=== PATIENT | female | born 1960 | race Caucasian/White ===

== ENCOUNTER 2016-03-19 09:10 | Emergency (ER) | payer OTHER ==
[2016-03-19 10:20] VITALS: BP 139/64
--- NOTE | 2016-03-19 10:29 | UC ---
Skin Complaint HPI - HPI Summary HPI Summary: The patient comes in today for: 1. Skin lesions: Onset: 3 days ago. Palliative/provocative: Nothing makes it better or worse. Quality: Sharp and shooting. Region: Right torso. Severity: 10/10 when present. Time: Seconds in duration. Associated symptoms: Fevers: None. Breast: No discharge. Last mammogram: Last year and OK. Axillary pain/swelling: None * - History of Current Complaint Chief Complaint: UCSkin Time Seen by Provider: 03/19/16 10:21 Stated Complaint: SKIN COMPLAINT Hx Obtained From: Patient Hx Last Menstrual Period: N/A ?: No - Allergy/Home Medications Allergies/Adverse Reactions: Allergies Allergy/AdvReac Type Severity Reaction Status Date / Time No Known Allergies Allergy Verified 03/19/16 10:21 Home Medications: Home Medications NK [No Home Medications Reported] 03/19/16 [History Confirmed 03/19/16] Review of Systems Constitutional: Negative Skin: Negative Eyes: Negative ENT: Negative Respiratory: Negative Cardiovascular: Negative Gastrointestinal: Negative Genitourinary: Negative All Other Systems Reviewed And Are Negative: Yes PMH/Surg Hx/FS Hx/Imm Hx Previously Healthy: Yes Endocrine History Of: Denies: Diabetes, Thyroid Disease, Hyperthyroidism, Hypothyroidism, Dyslipidemia Cardiovascular History Of: Denies: Cardiac Disorders, Hypertension, Pacemaker/ICD, Myocardial Infarction , Congestive Heart Failure, Atrial Fibrillation, Deep Vein Thrombosis, Bleeding Disorders Respiratory History Of: Denies: COPD, Asthma, Bronchitis, Pneumonia, Pulmonary Embolism GI/ History Of: Reports: Ulcer - peptic "long time ago." Denies: Gastroesophageal Reflux, Gastrointestinal Bleed, Gall Bladder Disease , Kidney Stones, Diverticulitis, Renal Disease, Urosepsis Neurological History Of: Reports: Migraine - No Rx regularly. Denies: TIA, CVA, Dementia, Seizures Psychological History Of: Denies: Anxiety, Depression, Bipolar Disorder, Schizophrenia, Post Traumatic Stress Disorder Cancer History Of: Denies: Lung Cancer, Colorectal Cancer, Breast Cancer, Prostate Cancer, Cervical Cancer Other History Of: Negative For: HIV, Hepatitis B, Hepatitis C, Anticoagulant Therapy - Surgical History Surgical History: Yes Surgery Procedure, Year, and Place: [facility]. Tonsilectomy. ovaries removed R/T cysts. GASTRIC SLEEVE--01/09/13 - Family History Known Family History: Negative: Cardiac Disease, Hypertension - Social History Occupation: Employed Full-time Alcohol Use: Occasionally Substance Use Type: None Smoking Status (MU): Former Smoker When Did the Patient Quit Smoking/Using Tobacco: 20 YRS AGO Physical Exam Triage Information Reviewed: Yes Appearance: Well-Appearing, No Pain Distress, Well-Nourished Vital Signs: Initial Vital Signs Temp 98.5 F 03/19/16 10:13 Pulse 74 03/19/16 10:13 Resp 16 03/19/16 10:13 BP 139/64 03/19/16 10:13 Pulse Ox 100 03/19/16 10:13 Vital Signs Reviewed: Yes Eyes: Positive: Conjunctiva Clear. Negative: Discharge ENT: Positive: Hearing grossly normal. Negative: Pharyngeal erythema, Nasal congestion, Nasal drainage, TM bulging, TM dull, TM red, Tonsillar swelling, Tonsillar exudate Dental: Negative: Gross Decay/Caries @, Dental Fracture @ Neck: Positive: Supple, Nontender, No Lymphadenopathy. Negative: Nuchal Rigidity Respiratory: Positive: Chest non-tender, Lungs clear, No respiratory distress, No accessory muscle use. Negative: Crackles, Wheezing Cardiovascular: Positive: RRR, No Murmur Abdomen Description: Positive: Nontender, No Organomegaly, Soft. Negative: Distended, Guarding, Peritoneal Signs Musculoskeletal: Positive: Strength Intact, ROM Intact, No Edema Neurological: Positive: Alert, Muscle Tone Normal Psychological: Positive: Age Appropriate Behavior, Consolable Skin: Positive: Other - Right side of torso/breast: There is no rash. There are no masses of the breast or nipple anatomy distortion or discharge. There is no axillary adenopathy. There are no subcutaneous masses. There is no induration.. Negative: rashes, breakdown Course/Dx - Course Course Of Treatment: Patient was told of her diagnostic and treatment options. AT this time, she would like to take Valtrex and a neuropathic medication. - Differential Diagnoses - Skin Complaint Differential Diagnoses: Tinea, Urticaria, Varicella Zoster - Diagnoses Provider Diagnoses: Episodic, sharp/shooting paresthesias (early Zoster vs idiopathic) Discharge - Discharge Plan Condition: Stable Disposition: HOME Patient Education Materials: Shingles (ED) Referrals: Eva Gutierrez MD [Primary Care Provider] - 1 Week (Please see your primary care provider in about a week to see how well you are doing. If you get worse, please be seen sooner.)
== END 2016-03-19 11:15 | disposition home or self-care (01) ==
LOC: UCCORT 09:10
DX: R20.2 Paresthesia of skin (principal); Z87.891 Personal history of nicotine dependence
CPT/HCPCS: 99212; G0463

== ENCOUNTER 2017-03-20 08:47 | Emergency (ER) | payer OTHER ==
[2017-03-20 09:10] VITALS: BP 126/72
--- NOTE | 2017-03-20 09:21 | UC ---
Respiratory Complaint HPI - HPI Summary HPI Summary: She has had a cough for about 2-3 weeks but this was on the mend and then yesterday she had sudden myalgias, chills, subjective fever, headache and malaise. Son has the same symptoms. - History of Current Complaint Chief Complaint: UCGeneralIllness Stated Complaint: FLU SYMPTOMS Time Seen by Provider: 03/20/17 09:12 Hx Obtained From: Patient Hx Last Menstrual Period: N/A Onset/Duration: Sudden Onset, Lasting Hours Timing: Constant Severity Initially: Moderate Severity Currently: Moderate Character: Cough: Nonproductive Aggravating Factors: Deep Breaths, Recumbent Position Alleviating Factors: Upright Position, Spontaneous Resolution Associated Signs And Symptoms: Positive: Fever, Chills, URI, Nasal Congestion. Negative: Wheezing, Hemoptysis, Dizziness, Calf Pain, Calf Swelling - Allergies/Home Medications Allergies/Adverse Reactions: Allergies Allergy/AdvReac Type Severity Reaction Status Date / Time No Known Allergies Allergy Verified 03/20/17 09:09 PMH/Surg Hx/FS Hx/Imm Hx Previously Healthy: Yes - NO prior lung disease. Smoker though in remission. Other History Of: Negative For: HIV, Hepatitis B, Hepatitis C, Anticoagulant Therapy - Surgical History Surgical History: Yes Surgery Procedure, Year, and Place: [facility]. Tonsilectomy. ovaries removed R/T cysts. GASTRIC SLEEVE--01/09/13 - Family History Known Family History: Positive: None Negative: Cardiac Disease, Hypertension - Social History Lives: With Family Alcohol Use: Weekly Substance Use Type: None Smoking Status (MU): Former Smoker When Did the Patient Quit Smoking/Using Tobacco: ~1997 - Immunization History Most Recent Influenza Vaccination: November 2016 Review of Systems Constitutional: Fever, Chills ENT: Sore Throat Respiratory: Cough Gastrointestinal: Diarrhea, Nausea All Other Systems Reviewed And Are Negative: Yes Physical Exam Triage Information Reviewed: Yes Appearance: Well-Appearing - Non toxic but does appear to have malaise., No Pain Distress, Obese Vital Signs: Initial Vital Signs Temp 99 F 03/20/17 09:05 Pulse 102 03/20/17 09:05 Resp 18 03/20/17 09:05 BP 126/72 03/20/17 09:05 Pulse Ox 100 03/20/17 09:05 Vital Signs Reviewed: Yes Eyes: Positive: Conjunctiva Clear ENT: Positive: Normal ENT inspection, Hearing grossly normal, Pharynx normal. Negative: Pharyngeal erythema, Nasal congestion, Nasal drainage, TMs normal, Tonsillar swelling, Tonsillar exudate, Trismus, Muffled voice, Hoarse voice Neck: Positive: Supple, Nontender, No Lymphadenopathy. Negative: Nuchal Rigidity Respiratory: Positive: Lungs clear, Normal breath sounds, No respiratory distress, No accessory muscle use. Negative: Respiratory distress, Decreased breath sounds, Accessory muscle use, Crackles, Rhonchi, Stridor, Wheezing Cardiovascular: Positive: No Murmur, Pulses Normal, Brisk Capillary Refill Abdomen Description: Positive: No Organomegaly, Soft. Negative: Distended, Guarding Musculoskeletal: Positive: ROM Intact, No Edema Neurological: Positive: Alert, Muscle Tone Normal. Negative: Fatigued Psychological: Positive: Age Appropriate Behavior Skin: Negative: rashes UC Diagnostic Evaluation - Laboratory O2 Sat by Pulse Oximetry: 100 Respiratory Course/Dx - Course Course Of Treatment: HR noted. She has a low grade fever. No clinical signs of pneumonia and no sob or rales. Cough is mainly dry. - Differential Dx/Diagnosis Provider Diagnoses: possible influenza. viral illness. vomiting. Discharge - Discharge Plan Condition: Good Disposition: HOME Prescriptions: Ondansetron TAB* [Zofran 4 MG Tab*] 8 mg PO Q6H PRN #12 tab PRN Reason: Nausea Patient Education Materials: Gastroenteritis (ED) Referrals: Cara Flower NP [Primary Care Provider] -
== END 2017-03-20 09:59 | disposition home or self-care (01) ==
LOC: UCCORT 08:47
DX: B34.9 Viral infection, unspecified (principal); R11.11 Vomiting without nausea; Z87.891 Personal history of nicotine dependence
CPT/HCPCS: 87502; 99212; G0463

== ENCOUNTER 2019-04-28 13:55 | Emergency (ER) | payer OTHER ==
[2019-04-28 15:07] VITALS: BP 143/77
--- NOTE | 2019-04-28 15:18 | UC ---
Skin Complaint HPI - HPI Summary HPI Summary: Patient is 59 female year old , who present today to the urgent care with a possible tick bite. Noticed tick bite on back today. Was unable to remove tick. She reports that 6 days ago [place] and might have caught take from there. And is concerned. Denies any pain or itching . She denies any other symptoms. - History of Current Complaint Chief Complaint: UCSkin Time Seen by Provider: 04/28/19 15:09 Stated Complaint: POSSIBLE TICK BITE Hx Obtained From: Patient Hx Last Menstrual Period: N/A Pain Intensity: 0 - Allergy/Home Medications Allergies/Adverse Reactions: Allergies Allergy/AdvReac Type Severity Reaction Status Date / Time No Known Allergies Allergy Verified 04/28/19 15:03 Home Medications: Home Medications NK [No Home Medications Reported] 04/28/19 [History Confirmed 04/28/19] PMH/Surg Hx/FS Hx/Imm Hx - Additional Past Medical History Additional PMH: Past Medical History : Peptic ulcer disease Past Surgical History: Cholecystectomy, tonsillectomy, right oophorectomy, gastric sleeve surgery in 2012 Family History : non contributory for any skin disorders Social History : Occasional alcohol, non smoker, no drug use. Previously Healthy: Yes Other History Of: Negative For: HIV, Hepatitis B, Hepatitis C, Anticoagulant Therapy - Surgical History Surgical History: Yes Surgery Procedure, Year, and Place: [facility]. Tonsilectomy. ovaries removed R/T cysts. GASTRIC SLEEVE--01/09/13 - Family History Known Family History: Positive: None, Other - No skin disorder, Non-Contributory Negative: Cardiac Disease, Hypertension - Social History Alcohol Use: Occasionally Substance Use Type: None Smoking Status (MU): Former Smoker When Did the Patient Quit Smoking/Using Tobacco: ~1997 - Immunization History Most Recent Influenza Vaccination: November 2016 Review of Systems All Other Systems Reviewed And Are Negative: Yes Constitutional: Positive: Negative Skin: Positive: Other - Nodule Eyes: Positive: Negative ENT: Positive: Negative Respiratory: Positive: Negative Cardiovascular: Positive: Negative Gastrointestinal: Positive: Negative Genitourinary: Positive: Negative Motor: Positive: Negative Neurovascular: Positive: Negative Musculoskeletal: Positive: Negative Neurological/Mental Status: Positive: Negative Psychological: Positive: Negative Is Patient Immunocompromised?: No Physical Exam - Summary Physical Exam Summary: Vital Signs Reviewed: Yes A+Ox3, no distress Eyes: Conjunctiva Clear ENT: Hearing grossly normal neck: supple Respiratory: Positive: No respiratory distress, No accessory muscle use Cardiovascular: skin color reflect adequate perfusion Musculoskeletal Exam: GUZMAN x 4 without difficulty Neurological: Positive: Alert, ambulatory without difficulty Psychological: Positive: Normal Response To Family Skin: Positive: A small 2 mm size nodule noted the area of concern in the left upper back. Nontender to palpate. Nonerythematous. 4 mm size skin tag noted in the right lower back which is also nontender to palpate. no drainge or signs of infection. No tick noted Triage Information Reviewed: Yes Vital Signs: Initial Vital Signs Temp 97.7 F 04/28/19 15:03 Pulse 85 04/28/19 15:03 Resp 16 04/28/19 15:03 BP 143/77 04/28/19 15:03 Pulse Ox 100 04/28/19 15:03 Vital Signs Reviewed: Yes Course/Dx - Course Course Of Treatment: During the visit today, we discussed the findings consistent with a skin nodule and ask intact likely a verruca. We discussed that she should follow-up with the resident care aide and she has a resident care aide in [place] with whom she will follow up for further management. No tick was identified today and reassurance was provided. Patient expressed understanding . - Diagnoses Provider Diagnosis: Verruca vulgaris, Skin tag, Skin nodule Discharge ED - Sign-Out/Discharge Documenting (check all that apply): Patient Departure All imaging exams completed and their final reports reviewed: No Studies - Discharge Plan Condition: Stable Disposition: HOME Referrals: Cara Flower NP [Primary Care Provider] - If Needed Additional Instructions: You don't have a tick bite. There is a skin nodule/skin tag that is noted. Please follow up with dermatology. Patients blood pressure slightly high in Urgent care today , plan follow up with PCP for better control within 4 weeks Return to Urgent care / ER if symptoms get worse. - Billing Disposition and Condition Condition: STABLE Disposition: Home
== END 2019-04-28 15:32 | disposition home or self-care (01) ==
LOC: UCCORT 13:55
DX: B07.9 Viral wart, unspecified (principal); L91.8 Other hypertrophic disorders of the skin; L98.8 Other specified disorders of the skin and subcutaneous tissue; Z87.891 Personal history of nicotine dependence; W57.XXXA Bitten or stung by nonvenomous insect and other nonvenomous arthropods, initial encounter; Y92.9 Unspecified place or not applicable
CPT/HCPCS: 99212; G0463